=== PATIENT | female | born 1950 | race Hispanic/Latino ===

== ENCOUNTER → 2017-12-09 | Outpatient (CLI) | payer OTHER ==
[~2017-12-09] MED LIST: AMLO5TAB2 PO; ASPI-1197 PO; CARV12.511 PO; CLOP75TA14 PO; INSU100V12 SQ; IOPAMIDOL-370 100 ML VIAL IV ONE; IOPAMIDOL-370 75 ML VIAL IV ONE; ISOS30TA6 PO; LEVO150T11 PO; LISI40TA4 PO; SEVE800T7 PO
== END | disposition home or self-care (01) ==
LOC: OIH 08:07
PROVIDERS: ATTEND Internal Medicine Cardiovascular Disease
DX: I73.9 Peripheral vascular disease, unspecified (principal); I70.90 Unspecified atherosclerosis
CPT/HCPCS: 75635; Q9967 ×2

== ENCOUNTER 2018-01-06 05:45 | Day surgery (SDC) | payer OTHER ==
[2018-01-05 09:12] VITALS: BP 154/64
[2018-01-05 09:23] LABS: BILIRUBIN,URINE Negative (NEGATIVE); COLOR,URINE Yellow (YELLOW); GLUCOSE, URINE (UA) Negative (NEGATIVE); KETONES,URINE Negative (NEGATIVE); LEUKOCYTE ESTERASE ,URINE Trace (NEGATIVE); NITRATE,URINE Negative (NEGATIVE); OCCULT BLOOD,URINE Negative (NEGATIVE); PH,URINE 6.5 (5.0-8.0); PROTEIN,URINE POS 2+ (NEGATIVE); UROBILINOGEN,URINE 0.2 mg/dL (0.2-1.0)
[2018-01-05 09:23] LABS: BASOPHILS % (AUTO) 1.7 % (0.0-5.0); EOSINOPHILS % (AUTO) 3.1 % (0.0-8.0); HEMATOCRIT 27.2 % (36-48); LYMPHOCYTES % (AUTO) 13.6 % (21.0-51.0); MEAN CORPUSCULAR HEMOGLOBIN 30.3 pg (27.0-33.0); MEAN CORPUSCULAR HGB CONC 33.6 g/dL (32.0-36.0); MEAN CORPUSCULAR VOLUME 89.9 fL (79-99); MONOCYTES % (AUTO) 5.8 % (3.0-13.0); NEUTROPHILS % (AUTO) 75.8 % (40.0-77.0); PLATELET COUNT (AUTO) 354 K/uL (130-400); RED BLOOD CELL COUNT(AUTO) 3.03 MIL/uL (4.00-5.50); RED CELL DISTRIBUTION WIDTH 18.2 % (11.0-15.5); WHITE BLOOD COUNT (AUTO) 9.7 K/uL (4.8-10.8)
[2018-01-05 09:34] LABS: CREATININE 5.3 mg/dL (0.5-1.5); POTASSIUM 5.4 mmol/L (3.5-5.1)
[2018-01-05 09:37] LABS: INR 0.98 (0.85-1.15); PARTIAL THROMBOPLASTIN TIME 32.4 SEC (26.3-35.5); PROTHROMBIN TIME 10.3 SEC (9.6-11.6)
[2018-01-05 09:46] LABS: APPEARANCE,URINE SLIGHTLY CLOUDY (CLEAR)
[2018-01-05 09:58] LABS: RBC,URINE 0-1 /HPF (0-1)
[2018-01-05 09:59] LABS: BACTERIA,URINE Few /HPF (None Seen)
[~2018-01-06] VITALS: Ht 152.4 cm; Wt 48.4 kg
[2018-01-06] VITALS (22 sets, daily range): BP systolic 115–140; BP diastolic 43–55
[~2018-01-06 05:45] MED LIST changes: -ASPI-1197 PO; -CLOP75TA14 PO; -IOPAMIDOL-370 100 ML VIAL IV ONE; -IOPAMIDOL-370 75 ML VIAL IV ONE; +SODIUM CHLORIDE 0.9% 500ML 500 ML IV SCH
[2018-01-06] MEDS ORDERED: NITROGLYCERIN 5 MG/ML 10 ML VIAL IV ONE (07:07)
[2018-01-06] MEDS ORDERED: HEPARIN SODIUM 1000UNIT/ML 10ML VIAL ONE (07:07)
[2018-01-06] MEDS ORDERED: LIDOCAINE HCL 2% 20ML ONE (07:07)
[2018-01-06] MEDS ORDERED: ISOVUE-300 100 ML VIAL IV ONE ×2 (07:07→08:14)
[2018-01-06] MEDS: SODIUM CHLORIDE 0.9% 1000ML 1,000 ML IV ONE (07:38)
[2018-01-06] MEDS ORDERED: FENTANYL CITRATE PF 50 MCG/1 ML 2ML VIAL ONE (07:39)
[2018-01-06] MEDS ORDERED: MIDAZOLAM HCL 1 MG/ML 2ML VIAL ONE (07:39)
[2018-01-06] MEDS ORDERED: ASPIRIN 325MG EC TAB 325 MG TABLET.DR PO ONE (08:22)
[2018-01-06] MEDS ORDERED: CLOPIDOGREL BISULFATE 300 MG TAB ONE (08:22)
[2018-01-06] MEDS ORDERED: GLUCAGON 1MG KIT 1 MG ML IM PRN (08:30)
[2018-01-06] MEDS ORDERED: NITROGLYCERIN 0.4 MG SL TAB SL PRN (08:30)
[2018-01-06] MEDS ORDERED: METOPROLOL TARTRATE 1 MG/ML 5ML VIAL IV PRN (08:30)
[2018-01-06] MEDS ORDERED: DEXTROSE 50%-WATER 50 ML DISP.SYRIN IV PRN (08:30)
[2018-01-06] MEDS ORDERED: HYDRALAZINE HCL 20 MG/ML VIAL IV PRN (08:30)
[2018-01-06] MEDS ORDERED: ASPI-1197 PO (08:33)
[2018-01-06] MEDS ORDERED: CLOP75TA14 PO (08:33)
[2018-01-06] MEDS: CARVEDILOL 12.5 MG TABLET PO SCH (09:00)
[2018-01-06] MEDS: LISINOPRIL 40 MG TABLET PO SCH (09:00)
[2018-01-06] MEDS: AMLODIPINE BESYLATE 5 MG TAB PO SCH (09:00)
[2018-01-06] MEDS: ISOSORBIDE MONO 30MG TAB SR PO SCH (09:20)
[2018-01-06] MEDS: CLOPIDOGREL BISULFATE 75 MG TAB PO SCH (09:21)
[2018-01-06] MEDS: LEVOTHYROXINE 150 MCG TABLET PO SCH (09:22)
[2018-01-06] MEDS ORDERED: INSULIN HUMULIN R 100 UNIT/ML 3ML SQ SCH (11:30)
[2018-01-06] MEDS ORDERED: SEVELAMER HCL 800 MG TABLET PO SCH (12:00)
[2018-01-06] MEDS ORDERED: INSULIN GLARGINE 100 UNITS/ML 10 ML VIAL SQ SCH (21:00)
== END 2018-01-06 15:40 | disposition home or self-care (01) ==
LOC: DAH 05:45
PROVIDERS: ATTEND Internal Medicine Cardiovascular Disease
DX: E11.51 Type 2 diabetes mellitus with diabetic peripheral angiopathy without gangrene (principal); E11.621 Type 2 diabetes mellitus with foot ulcer; I70.213 Atherosclerosis of native arteries of extremities with intermittent claudication, bilateral legs; I70.244 Atherosclerosis of native arteries of left leg with ulceration of heel and midfoot; I70.234 Atherosclerosis of native arteries of right leg with ulceration of heel and midfoot; E11.22 Type 2 diabetes mellitus with diabetic chronic kidney disease; I70.92 Chronic total occlusion of artery of the extremities; I25.10 Atherosclerotic heart disease of native coronary artery without angina pectoris; I12.0 Hypertensive chronic kidney disease with stage 5 chronic kidney disease or end stage renal disease; N18.6 End stage renal disease; E03.9 Hypothyroidism, unspecified; I25.2 Old myocardial infarction; E78.5 Hyperlipidemia, unspecified; Z89.421 Acquired absence of other right toe(s); Z79.82 Long term (current) use of aspirin; Z79.899 Other long term (current) drug therapy; Z79.84 Long term (current) use of oral hypoglycemic drugs; Z89.412 Acquired absence of left great toe; Z98.890 Other specified postprocedural states; Z82.49 Family history of ischemic heart disease and other diseases of the circulatory system
CPT/HCPCS: 36415; 37224; 71045; 75625; 75630; 80048; 81001; 82948; 85025; 85347; 85610; 85730; 93005; 99156; 99157; A4606; C1769; C1893; C1894; J1644; J2250; J3010; J3490; J7030; Q9967

== ENCOUNTER → 2018-07-21 | Outpatient (CLI) | payer OTHER ==
[~2018-07-21] MED LIST changes: -AMLO5TAB2 PO; +AMLO5TAB7 PO; +ASPI-1197 PO; +CLOP75TA14 PO; -SODIUM CHLORIDE 0.9% 500ML 500 ML IV SCH
== END | disposition home or self-care (01) ==
LOC: RAH 11:55
PROVIDERS: ATTEND Internal Medicine
DX: R51 Headache (principal)
CPT/HCPCS: 70450